=== PATIENT | female | born 1995 | race Asian ===

== ENCOUNTER 2025-07-20 18:00 | Inpatient (IN) | payer MEDICAID, OTHER ==
[2025-07-27 18:15] VITALS: BMI 23.3
[2025-07-27] MEDS ORDERED: Lidocaine 1% (PF) 30 ML VIAL SC PRN (18:17)
[2025-07-27] MEDS ORDERED: Diphenoxylate HCl/Atropine Tablet PO PRN (18:17)
[2025-07-27] MEDS ORDERED: HYDROcodone/Acetaminophen 5/325 mg Tablet PO PRN (18:17)
[2025-07-27] MEDS ORDERED: hydrALAZINE 20 MG/ML VIAL SLOW IVP PRN (18:17)
[2025-07-27] MEDS ORDERED: Oxytocin 30 units/NS 500 ML 500 ML IV SCH (18:30)
[2025-07-27 18:50] LABS: Hematocrit 35.0 % (34.9-44.5); Hemoglobin 11.8 g/dL (12.0-15.5); Mean Corpuscular Hemoglobin 32.2 pg (27.0-33.0); Mean Corpuscular Volume 95.4 fL (81.6-98.3); Platelet Count 167 10x3/uL (150-450); Red Blood Cell (RBC) Count 3.67 10x6/uL (3.90-5.03); White Blood Cell (WBC) Count 7.56 10x3/uL (3.5-10.5)
[2025-07-27 19:35] LABS: Syphilis Antibody Index 0.06 S/CO (<1.00 Non-Reactive)
[2025-07-27 19:36] LABS: Hep B Surf Ag - L&D Non-Reactive S/CO (NonReactive)
[2025-07-28] MEDS: Acetaminophen 500 MG TAB PO PRN (00:32)
[2025-07-28] MEDS: fentaNYL/Ropivacaine Epidural 100 ML ONE (11:40)
[2025-07-28] MEDS ORDERED: Acetaminophen 325 MG TAB PO PRN (13:34)
[2025-07-28] MEDS ORDERED: diphenhydrAMINE 50 MG/ML VIAL IVP PRN (13:34)
[2025-07-28] MEDS ORDERED: Ondansetron PF 4 MG/2 ML Vial IVP PRN ×2 (13:34→20:53)
[2025-07-28] MEDS ORDERED: Communication Order-Pharmacy FS SCH (13:45)
[2025-07-28] MEDS: Tranexamic Acid 1,000 MG/10 ML VIAL IVP PRN (19:20)
[2025-07-28] MEDS: Methylergonovine 0.2 MG/ML VIAL IM PRN (19:21)
[2025-07-28] MEDS ORDERED: fentaNYL/Ropivacaine Epidural 100 ML ONE (19:34)
[2025-07-28] MEDS: Carboprost 250 MCG/ML AMP IM PRN (19:38)
[2025-07-28] MEDS: fentaNYL 2 mcg/Ropivacaine 0.2% Epidural 100 ML CADD EPIDURAL SCH (19:39)
[2025-07-28] MEDS: Ondansetron PF 4 MG/2 ML Vial IVP PRN (19:40)
[2025-07-28] MEDS ORDERED: Metoclopramide HCl 10 MG (2 mL) VIAL IVP PRN (19:49)
[2025-07-28] MEDS: Oxytocin 30 units/NS 500 ML 500 ML IV SCH (19:58)
[2025-07-28] MEDS: Metoclopramide HCl 10 MG (2 mL) VIAL IVP SCH (20:14)
[2025-07-28] MEDS: Ibuprofen 800 MG TAB PO PRN (20:52)
[2025-07-28] MEDS ORDERED: diphenhydrAMINE 25 MG CAP PO PRN (20:53)
[2025-07-28] MEDS ORDERED: Milk Of Magnesia 30 ML UDCUP PO PRN (20:53)
[2025-07-28] MEDS ORDERED: Preparation H Ointment 28 GM TUBE PR PRN (20:53)
[2025-07-28] MEDS ORDERED: Benzocaine-Menthol 82.5 ML CAN TOP PRN (20:53)
[2025-07-28] MEDS ORDERED: Boostrix 0.5 ML (Tdap) VIAL (>/=7 yrs of age) IM ONE (20:53)
[2025-07-28] MEDS ORDERED: HYDROcodone/Acetaminophen 5/325 mg Tablet PO PRN (20:53)
[2025-07-28] MEDS ORDERED: hydrALAZINE 20 MG/ML VIAL SLOW IVP PRN (20:53)
[2025-07-28] MEDS ORDERED: Lanolin Ointment 7 GM TUBE TOP PRN (20:53)
[2025-07-28] MEDS ORDERED: Bisacodyl 10 MG SUPP PR PRN (20:53)
[2025-07-29 05:50] LABS: Hematocrit 33.4 % (34.9-44.5); Hemoglobin 11.8 g/dL (12.0-15.5); Mean Corpuscular Hemoglobin 33.1 pg (27.0-33.0); Mean Corpuscular Volume 93.6 fL (81.6-98.3); Platelet Count 156 10x3/uL (150-450); Red Blood Cell (RBC) Count 3.57 10x6/uL (3.90-5.03); White Blood Cell (WBC) Count 16.10 10x3/uL (3.5-10.5)
[2025-07-29] MEDS: Ibuprofen 800 MG TAB PO SCH (06:06)
[2025-07-29] MEDS ORDERED: Bupivacaine 0.25% HCL 30 ML VIAL ONE (07:00)
[2025-07-29] MEDS: Ferrous Sulfate 325 MG TAB PO SCH (09:23)
[2025-07-29 16:08] VITALS: TEMP 98.2
[2025-07-30 08:01] VITALS: BP 105/69
[2025-07-30] MEDS: Ibuprofen 800 MG TAB PO SCH (09:04)
== END 2025-07-30 18:30 | disposition home or self-care (01) | DRG 806 ==
LOC: CSHLD 07-27 17:56 → CSHPP 07-28 23:57
PROVIDERS: ADMIT Family Medicine; ATTEND Family Medicine
PROC: 3E0DXGC Introduction of Other Therapeutic Substance into Mouth and Pharynx, External Approach (ICD-10-PCS; 2025-07-28)
PROC: 10907ZC Drainage of Amniotic Fluid, Therapeutic from Products of Conception, Via Natural or Artificial Opening (ICD-10-PCS; 2025-07-28)
PROC: 10E0XZZ Delivery of Products of Conception, External Approach (ICD-10-PCS; principal; 2025-07-29)
PROC: 0KQM0ZZ Repair Perineum Muscle, Open Approach (ICD-10-PCS; 2025-07-29)
PROC: 0UQMXZZ Repair Vulva, External Approach (ICD-10-PCS; 2025-07-29)
PROC: 0UQGXZZ Repair Vagina, External Approach (ICD-10-PCS; 2025-07-29)
DX: O36.5930 Maternal care for other known or suspected poor fetal growth, third trimester, not applicable or unspecified (principal); O72.1 Other immediate postpartum hemorrhage; Z37.0 Single live birth; O70.1 Second degree perineal laceration during delivery; Z3A.38 38 weeks gestation of pregnancy; Z79.899 Other long term (current) drug therapy; Z79.82 Long term (current) use of aspirin
CPT/HCPCS: 36415; 51702; 85027; 86780; 86850; 86900; 86901; 87340; J0665; J2210; J2590; J2765; J3490